=== PATIENT | male | born 1955 | race Caucasian/White ===

== ENCOUNTER 2022-07-21 09:56 | Emergency (ER) | payer MEDICARE, SELFPAY ==
[2022-07-21] VITALS (12 sets, daily range): BP systolic 136–174; BP diastolic 91–109; PULSE 68–914; RESP 16–25; TEMP 36.5; O2SAT 94–98; BMI 43.4
--- NOTE | 2022-07-21 10:00 | ECG_ITS ---
APPROVED REPORT Exam: Resting ECG HR:98 bpm ECG Measurements Heart Rate 98 AXES RI 203 P 64 QRSd 109 QRS -59 QT 377 T 73 QTc 432 Conclusion SINUS RHYTHM INCOMPLETE RIGHT BUNDLE BRANCH Old anteroseptal changes UNCONFIRMED REPORT Electronically signed by : Naveed Tucker MD 07/21/2022 15:06:52
--- NOTE | 2022-07-21 10:09 | [facility].EDSOB ---
Discharge Plan Disposition Patient Disposition: Home, Self-Care Condition: Fair Chief Complaint: Shortness of Breath/Dyspnea Prescriptions Prescriptions: No Action cyclobenzaprine 10 mg tablet 10 mg PO DAILY spironolactone 25 mg tablet 25 mg PO DAILY simvastatin 40 mg tablet 40 mg PO DAILY metoclopramide HCl 5 mg tablet 5 mg PO DAILY furosemide 80 mg tablet 80 mg PO DAILY pantoprazole 40 mg tablet,delayed release (DR/EC) 40 mg PO DAILY polymyxin B sulf-trimethoprim 10,000 unit- 1 mg/mL drops 1 drp ophthalmic (eye) DAILY montelukast 10 mg tablet 10 mg PO DAILY metoprolol succinate 25 mg tablet extended release 24 hr 25 mg PO DAILY alfuzosin 10 mg tablet extended release 24 hr 10 mg PO DAILY budesonide-formoterol [Symbicort] 80-4.5 mcg/actuation HFA aerosol inhaler 1 puff INHALATION DAILY Referrals Follow up/Referrals: Michael Cannon [Primary Care Provider] - See instructions Activity Restrictions/Add. Instructions Additional Instructions/Restrictions: Follow-up with your carbonizer tester within about 1 week. They should contact you. However, if they do not please call their office and remind them that I had called Dr. Mejía today. Your work-up today suggest that you may have congestive heart failure. Please return to the emergency department immediately if you feel worse in any way. Continue taking all your medications as prescribed. Reduce your fluid intake if at all possible. Keep all follow-up appointments as scheduled. Clinical Impressions Clinical Impression: Congestive heart failure Instructions Patient Instructions: DI for Shortness of Breath, Heart Failure Discharge ED Provider: Logan Calhoun Resp/SOB HPI General Chief Complaint: Shortness of Breath/Dyspnea Stated Complaint: SOA Time Seen by Provider: 07/21/22 10:08 History of Present Illness Patient presents to the emergency department complaining of progressively worsening shortness of breath for approximately 1 week. Was never diagnosed with congestive heart failure. He feels a fullness in his chest. He denies chest pain. He does confirm lower extremity edema but this has been the same for approximately 10 to 20 years. He has a history of hypertension and takes Lasix as well. He denies fevers, cough. MD Complaint: shortness of breath Related Data Home Medications Medication Instructions Recorded Confirmed alfuzosin 10 mg tablet,extended 10 mg PO DAILY per 07/21/22 07/21/22 release 24 hr budesonide-formoterol HFA 80 1 puff inhalation DAILY per md 07/21/22 07/21/22 mcg-4.5 mcg/actuation aerosol inhaler (Symbicort) cyclobenzaprine 10 mg tablet 10 mg PO DAILY per md 07/21/22 07/21/22 furosemide 80 mg tablet 80 mg PO DAILY Edema 07/21/22 07/21/22 metoclopramide HCl 5 mg tablet 5 mg PO DAILY per md 07/21/22 07/21/22 metoprolol succinate 25 mg 25 mg PO DAILY heart blake 07/21/22 07/21/22 tablet,extended release 24 hr montelukast 10 mg tablet 10 mg PO DAILY allergies 07/21/22 07/21/22 pantoprazole 40 mg tablet,delayed 40 mg PO DAILY GERD 07/21/22 07/21/22 release polymyxin B sulfate 10,000 1 drp ophthalmic (eye) DAILY eye 07/21/22 07/21/22 unit-trimethoprim 1 mg/mL eye drops simvastatin 40 mg tablet 40 mg PO DAILY Cholesterol 07/21/22 07/21/22 spironolactone 25 mg tablet 25 mg PO DAILY Edema 07/21/22 07/21/22 Allergies Allergy/AdvReac Type Severity Reaction Status Date / Time Penicillins Allergy Verified 09/19/18 10:30 [facility] Disclaimer: The information contained in this section may have been updated after the patient was seen, as this information can be updated by other users. Social History Smoking Status: Never smoker alcohol intake: never current occupational status: retired Travel in the last 8 weeks: None household members: spouse housing: house current occupational exposures/hazards: No caffeine: No ROS
--- NOTE | 2022-07-21 10:11 | XR_ITS ---
PROCEDURE INFORMATION: Exam: XR Chest Exam date and time: 07/21/2022 10:35 AM Age: 66 years old Clinical indication: Shortness of breath; Additional info: SOB TECHNIQUE: Imaging protocol: Radiologic exam of the chest. Views: 1 view. COMPARISON: [id number] CT abdomen pelvis w con 09/19/2018 11:07 AM FINDINGS: Lungs: Unremarkable. No consolidation. Pleural spaces: Unremarkable. No pleural effusion. No pneumothorax. Heart/Mediastinum: Unremarkable. No cardiomegaly. Bones/joints: Unremarkable. IMPRESSION: No acute findings.
[2022-07-21 10:35] LABS: Basophils # 0.1 K/mm3 (0-0.2); Basophils % 0.9 % (0.1-2.0); Eosinophils # 0.2 K/mm3 (0.0-0.4); Eosinophils % 2.1 % (0.1-12.0); Hemoglobin 14.4 g/dL (14.1-18.0); Lymphocytes # 1.3 K/mm3 (0.7-4.5); Lymphocytes % 16.7 % (10-50); Mean Corpuscular HGB Conc 32.8 g/dL (31.8-35.4); Mean Corpuscular Hemoglobin 28.3 pg (27.0-31.2); Mean Corpuscular Volume 86.5 fl (80-94); Monocytes # 0.5 K/mm3 (0.1-1.0); Monocytes % 5.6 % (1.7-9.3); Neutrophils # 5.9 K/mm3 (1.8-7.8); Neutrophils % 74.7 % (37.0-80.0); Platelet Count 351 K/mm3 (142-424); Red Blood Count 5.09 M/mm3 (4.60-6.20); Red Cell Distribution Width 13.8 % (11.5-17.5); White Blood Count 7.9 K/mm3 (4.8-10.8)
[2022-07-21 10:37] LABS: Coronavirus 19, PCR Not Detected (NotDetected); Influenza A, PCR Not Detected (NotDetected); Influenza B, PCR Not Detected (NotDetected); Microscopic, Urine URINE MICROSCOPIC (MICROSCOPIC)
[2022-07-21 10:41] LABS: Chloride 103 mmol/L (98-107)
[2022-07-21 10:41] LABS: Appearance,Urine CLEAR (Clear); Bilirubin,Urine Negative (Negative); Blood, Urine Negative (Negative); Color,Urine YELLOW (Yellow); Glucose,Urine (UA) Negative (Negative); Ketones,Urine Negative (Negative); Leukocyte Esterase,Urine Negative (Negative); Nitrate,Urine Negative (Negative); Protein,Urine Negative (Negative); Urobilinogen,Urine 0.2 EU/dl (0.2)
[2022-07-21 10:42] LABS: Potassium 3.4 mmoL/L (3.5-5.1); Sodium 143 mmol/L (136-145)
[2022-07-21 10:44] LABS: Alanine Aminotransferase 33 U/L (12-78); Aspartate Amino Transferase 29 U/L (17-59); Blood Urea Nitrogen 12 mg/dl (9-20); Creatinine Clearance Estimated 94 mL/min (50-200); Estimated Glomerular Filt Rate 75 ml/min (>60); GFR (African American) 91 ML/MIN (>60); Lactic Acid 1.2 mmol/L (0.7-2.1)
[2022-07-21 10:45] LABS: Albumin Level 4.3 g/dl (3.5-5.0); Albumin/Globulin Ratio 1.3 (1.1-1.8); Alkaline Phosphatase 83 U/L (38-126); Anion Gap 11.4 mEq/L (5-15); Bilirubin,Total 0.7 mg/dl (0.2-1.3); Calcium 9.1 mg/dl (8.4-10.2); Carbon Dioxide 32 mmol/L (22.0-30.0); Globulin 3.4 g/dL (1.3-3.2); Glucose 137 mg/dl (74-100); Total Protein,Serum 7.7 g/dl (6.3-8.2)
[2022-07-21 10:54] LABS: NT Pro Brain Natriuretic Pep. 1860 pg/mL (0-125)
[2022-07-21 10:57] LABS: Troponin I 0.05 ng/ml (0.00-0.034)
[2022-07-21 11:17] LABS: Squamous Epithelial Cell,Urine Occasional #/hpf (0-5); WBC,Urine Occasional #/hpf (0-3)
--- NOTE | 2022-07-21 12:57 | PC.NURSE ---
400ml emptied from koo. rounded on pt at this time. no needs voiced.
--- NOTE | 2022-07-21 13:16 | PC.NURSE ---
Repeat troponin lab sample drawn and sent
[2022-07-21 14:00] LABS: Troponin I 0.05 ng/ml (0.00-0.034)
--- NOTE | 2022-07-21 14:19 | PC.NURSE ---
placed call to medical exchange at [facility] for pt Planning Associate Dr Oliveros. Dr Mejía is head of conservation he was paged.
== END 2022-07-21 15:18 | disposition home or self-care (01) ==
PROVIDERS: Emergency Provider Emergency Medicine; PCP Pediatrics
DX: I50.9 Heart failure, unspecified (principal); I11.0 Hypertensive heart disease with heart failure; Z20.822 Contact with and (suspected) exposure to COVID-19
CPT/HCPCS: 71045; 80053; 81001; 83605; 83880; 84484; 85025; 87040; 93005; 96374; 99285; C9803; U0003; U0005

== ENCOUNTER 2022-09-04 12:47 | Outpatient (RCR) | payer MEDICARE, SELFPAY | END 2022-10-31 09:53 | disposition home or self-care (01) | LOC: PT 12:47 | PROVIDERS: Visit Provider Clinical Nurse Specialist Adult Health | DX: I25.10 Atherosclerotic heart disease of native coronary artery without angina pectoris (principal); I42.9 Cardiomyopathy, unspecified; I50.22 Chronic systolic (congestive) heart failure | CPT/HCPCS: 93798 ==

== ENCOUNTER 2023-10-09 18:00 | Outpatient (CLI) | payer MEDICARE, SELFPAY | END 2023-10-09 23:59 | disposition home or self-care (01) | LOC: LAB.DROPOF 10-13 08:17 | PROVIDERS: PCP Nurse Practitioner; Visit Provider Nurse Practitioner | DX: B35.1 Tinea unguium (principal); M79.675 Pain in left toe(s) | CPT/HCPCS: 87102; 87206; 87220 ==